=== PATIENT | female | born 1980 | race African-American/Black ===

== ENCOUNTER 2017-09-21 13:43 | Emergency (ER) | payer MEDICAID ==
[~2017-09-21] VITALS: Ht 175.3 cm; Wt 100.0 kg
[2017-09-21 14:43] VITALS: BP 142/90
[2017-09-21] MEDS ORDERED: DEXT236S PO (14:43)
== END 2017-09-21 16:38 | disposition home or self-care (01) ==
LOC: ER 15:13
DX: J11.1 Influenza due to unidentified influenza virus with other respiratory manifestations (principal); M94.0 Chondrocostal junction syndrome [Tietze]
CPT/HCPCS: 71045; 99283